=== PATIENT | male | born 1950 | race Two or more races ===

== ENCOUNTER → 2025-04-02 | Outpatient (CLI) | payer MEDICAID, SELFPAY ==
--- NOTE | 2025-04-02 17:21 | XR_ITS ---
EXAMINATION: PA lateral chest 2 views TECHNIQUE: Upright PA lateral chest 2 views Date and time: April 02, 2025, 1737 hours INDICATIONS: Preop FINDINGS: Normal heart size Lungs are clear. Mild osteopenia IMPRESSION: No active disease
--- NOTE | 2025-04-02 17:21 | XR_ITS ---
EXAMINATION: Left knee 2 views TECHNIQUE: AP lateral left knee 2 views Date and time: April 02, 2025, 1742 hours INDICATIONS: Left knee pain several years. FINDINGS: Advanced left knee tricompartment osteoarthritis No fracture Old depression of the medial tibial plateau Meniscus calcification Moderate knee effusion Opaque foreign body in the soft tissue, 6 mm, posterior to the proximal tibial shaft IMPRESSION: Advanced left knee tricompartment osteoarthritis
--- NOTE | 2025-04-02 17:21 | XR_ITS ---
EXAMINATION: X-ray bone length study, scanogram Date and time: April 02, [id number] 7:00 p.m. INDICATIONS: Leg pain osteoarthritis several years TECHNIQUE AND FINDINGS: AP pelvis, AP knees, AP ankles 3 views with a ruler device Moderate bilateral hip osteoarthritis Advanced osteoarthritis medial joint spaces knees bilaterally Right tibia-fibula 7 mm shorter than the left tibia fibula which may relate to the patient's prior right tibial shaft fracture which has now healed IMPRESSION: Moderate bilateral hip osteoarthritis Advanced osteoarthritis medial joint spaces knees Right tibia fibula 7 mm shorter than the left tibia fibula, which may relate to the patient's prior right tibial shaft fracture
== END | disposition home or self-care (01) ==
LOC: CDIM 17:14
PROVIDERS: Referring Provider Orthopaedic Surgery; Visit Provider Orthopaedic Surgery
DX: M17.12 Unilateral primary osteoarthritis, left knee (principal); M16.0 Bilateral primary osteoarthritis of hip; Z01.818 Encounter for other preprocedural examination; Z87.81 Personal history of (healed) traumatic fracture
CPT/HCPCS: 71046; 73560; 77073